=== PATIENT | female | born 1980 | race Caucasian/White ===

== ENCOUNTER → 2023-03-14 12:35 | Outpatient (CLI) | payer OTHER, SELFPAY ==
--- NOTE | ~2023-03-14 | MR_ITS ---
EXAMINATION: MR ankle LT wo con, MR foot LT wo con DATE: 03/14/2023 14:01 INDICATION: Lateral left foot and ankle pain TECHNIQUE: 1. Magnetic resonance imaging (MRI) of the left ankle/hindfoot was performed without intravenous cont rast. Sequences included sagittal, coronal, and axial PD-weighted FSE and PD-weighted FS FSE. 2. MRI of the left fore/mid foot was performed without intravenous contrast. Sequences included sagit demetria T1-weighted FSE, sagittal fluid sensitive FSE STIR, coronal PD-weighted FS FSE, coronal T1-weight ed FSE, axial PD-weighted FS FSE, and axial PD-weighted FSE. COMPARISON: None. FINDINGS: Medial ankle ligaments: Deep and superficial deltoid ligaments as well as the spring ligament are normal. Lateral ankle ligaments: The anterior and posterior inferior tibiofibular, anterior and posterior talofibular as well as the c alcaneofibular ligaments are normal. Tendons: Small enthesophytes at the calcaneal insertion of the otherwise normal Achilles tendon. The medial fl exor tendons as well as the extensor tendons of the foot/ankle are normal. There is mild peroneal ten osynovitis. The peroneus brevis tendon is normal. There is moderate tendinopathy and longitudinal spl it tearing of the peroneus longus tendon beginning above the level of the retromalleolar groove and e xtending distally to a full-thickness tear extending across the tendon at the level where the tendon passes plantar to the lateral cuneiform. Plantar fascia: Mild thickening and increased signal of the proximal central and lateral components of the plantar ap oneurosis with moderate-sized plantar calcaneal spur. No surrounding marrow or soft tissue edema to s uggest acute plantar fasciitis. Bones/other: Bone alignment is normal. No fracture or pathologic marrow replacing process. Polyarticular osteoarth ritis of moderate severity with subarticular edema-like changes at the second, third and fourth tarsa l metatarsal joints. Mild osteoarthritis at the subtalar, calcaneocuboid and first and fifth tarsal m etatarsal joints. Additional mild osteoarthritis in the forefoot at the first metatarsophalangeal and a few interphalangeal joints. The collateral ligament complex at the metatarsophalangeal and interph alangeal joints are normal. Fluid: Physiologic amount fluid in the joint spaces. Mild subcutaneous edema over the dorsum of the foot. Ad ditional deeper soft tissue edema in the midfoot surrounding the torn peroneus longus tendon. IMPRESSION: 1. Moderate peroneus longus tendinopathy with associated extensive longitudinal split tearing and mor e focal full-thickness tear in the distal tendon located plantar to the lateral cuneiform. 2. Mild to moderate polyarticular osteoarthritis in the left foot and ankle most prominent at the sec ond-fourth tarsal metatarsal joints. 3. Chronic mild plantar enthesopathy. Reviewed, dictated and finalized at location [facility]. IMPRESSION: 1. Moderate peroneus longus tendinopathy with associated extensive longitudinal split tearing and more focal full-thickness tear in the distal tendon located plantar to the lateral cuneiform. 2. Mild to moderate polyarticular osteoarthritis in the left foot and ankle mos t prominent at the second-fourth tarsal metatarsal joints. 3. Chronic mild plantar enthesopathy.
== END ==
PROVIDERS: PCP Student in an Organized Health Care Education/Training Program; Visit Provider Podiatrist Foot & Ankle Surgery
DX: M25.572 Pain in left ankle and joints of left foot (principal); M79.672 Pain in left foot; M19.072 Primary osteoarthritis, left ankle and foot; M77.32 Calcaneal spur, left foot; S96.812A Strain of other specified muscles and tendons at ankle and foot level, left foot, initial encounter
CPT/HCPCS: 73718; 73721

== ENCOUNTER 2023-12-21 14:42 | Outpatient (CLI) | payer OTHER, SELFPAY ==
--- NOTE | ~2023-12-21 | US_ITS ---
Pelvic ultrasound. Clinical History: Pelvic pain Technique: Realtime transvaginal scanning of the pelvis was performed. Color flow Doppler and Doppler spectral analysis were performed. Findings: The uterus is anteverted. The endometrial stripe has a thickness of [address], so mewhat towards the lower uterine segment. No focal mass is identified. The right ovary measures 1.5 x 1.7 x 1.3 cm. No significant right ovarian or adnexal mass is seen. The left ovary measures 2.8 x 2.7 x 2.6 cm. No significant left ovarian or adnexal mass is seen. No distinct evidence for ovarian torsion. There is no evidence of free fluid in the cul de sac. Impression: IUD present, somewhat towards the lower uterine segment. Reviewed, dictated and finalized at [facility]. Impression: IUD present, somewhat towards the lower uterine segment.
== END 2023-12-21 14:43 ==
LOC: MICIMG 14:43
PROVIDERS: PCP Student in an Organized Health Care Education/Training Program; Visit Provider Nurse Practitioner Women's Health
DX: R10.2 Pelvic and perineal pain (principal); Z97.5 Presence of (intrauterine) contraceptive device
CPT/HCPCS: 76830